=== PATIENT | male | born 1990 | race Caucasian/White ===

== ENCOUNTER 2021-04-27 14:25 | Emergency (ER) | payer BC ==
[~2021-04-27] VITALS: Ht 177 cm; Wt 64.0 kg
--- NOTE | 2021-04-27 14:54 | ED General ---
General Chief Complaint: Respiratory Problems Stated Complaint: INTERMITTENT DIZZINESS/SOB/CP History of Present Illness Date Seen by Provider: Apr 27, 2021 Time Seen by Provider: 14:35 Initial Comments 30-year-old male presents for a 1 to 2-month history of intermittent chest wall pain. He has occasional dizziness and shortness of air with symptoms. He reports various times they occur, sometimes when driving. He does report some stress and anxiety, but no depression. Denies sleep issues, no n/v/d. No family history of cardiac problems. He is not vaccinated, had a COVID test on 04/25/21 and was negative. He is tryin g to get established with a PCP at [facility]. They referred him here. Timing/Duration: Intermittent, Other (1 month) Associated Systoms: Chest Pain; No Cough, No Fever/Chills, No Headaches, No Loss of Appetite, No Nausea/Vomiting; Shortness of Air (not presently) Allergies and Home Medications Allergies Coded Allergies: No Known Drug Allergies (Unverified , 04/27/21) Patient Home Medication List Home Medication List Reviewed: Yes Review of Systems Review of Systems Constitutional: no symptoms reported, see HPI Respiratory: see HPI, short of breath Cardiovascular: see HPI, chest pain Gastrointestinal: no symptoms reported, see HPI All Other Systems Reviewed Negative Unless Noted: Yes Past Qtbitza-Wexdqw-Rbnyic Hx Patient Social History Tobacco Use?: Yes Tobacco type used: Cigarettes Use of E-Cig and/or Vaping dev: No Substance use?: Yes Substance type: Marijuana Substance frequency: Once in a while Family Medical History Reviewed Nursing Family Hx Physical Exam Vital Signs Vital Signs - First Documented 04/27/21 14:38 Temp 36.0 Pulse 75 Resp 18 B/P (MAP) 151/80 (103) Pulse Ox 98 O2 Delivery Room Air Capillary Refill : Height, Weight, BMI Height: '" Weight: lbs. oz. kg; BMI Method: General Appearance: No Apparent Distress, WD/WN HEENT: PERRL/EOMI, TMs Normal, Normal ENT Inspection, Pharynx Normal Neck: Full Range of Motion, Normal Inspection, Non Tender, Supple Respiratory: Chest Non Tender, Lungs Clear, Normal Breath Sounds Cardiovascular: Regular Rate, Rhythm, No Edema Gastrointestinal: Normal Bowel Sounds, No Pulsatile Mass, Non Tender, Soft Back: Normal Inspection, No CVA Tenderness, No Vertebral Tenderness Extremity: Normal Capillary Refill, Normal Inspection, Normal Range of Motion, Non Tender, No Calf Tenderness Neurologic/Psychiatric: Alert, Oriented x3, No Motor/Sensory Deficits, Normal Mood/Affect Skin: Normal Color, Warm/Dry Progress/Results/Core Measures Suspected Sepsis SIRS Temperature: Pulse: Respiratory Rate: Laboratory Tests 04/27/21 14:48: White Blood Count 5.6 Blood Pressure / Mean: Laboratory Tests 04/27/21 14:48: Creatinine 0.97, INR Comment 0.9, Platelet Count 279, Total Bilirubin 0.4 Results/Orders Lab Results Laboratory Tests Test 04/27/21 14:48 Range/Units White Blood Count 5.6 4.3-11.0 10^3/uL Red Blood Count 5.73 H 4.30-5.52 10^6/uL Hemoglobin 16.4 13.3-17.7 g/dL Hematocrit 48 40-54 % Mean Corpuscular Volume 85 80-99 fL Mean Corpuscular Hemoglobin 29 25-34 pg Mean Corpuscular Hemoglobin Concent 34 32-36 g/dL Red Cell Distribution Width 12.0 10.0-14.5 % Platelet Count 279 130-400 10^3/uL Mean Platelet Volume 9.6 9.0-12.2 fL Immature Granulocyte % (Auto) 0 % Neutrophils (%) (Auto) 57 42-75 % Lymphocytes (%) (Auto) 27 12-44 % Monocytes (%) (Auto) 11 0-12 % Eosinophils (%) (Auto) 3 0-10 % Basophils (%) (Auto) 1 0-10 % Neutrophils # (Auto) 3.2 1.8-7.8 10^3/uL Lymphocytes # (Auto) 1.5 1.0-4.0 10^3/uL Monocytes # (Auto) 0.6 0.0-1.0 10^3/uL Eosinophils # (Auto) 0.2 0.0-0.3 10^3/uL Basophils # (Auto) 0.1 0.0-0.1 10^3/uL Immature Granulocyte # (Auto) 0.0 0.0-0.1 10^3/uL Prothrombin Time 12.9 12.2-14.7 SEC INR Comment 0.9 0.8-1.4 Activated Partial Thromboplast Time 27 24-35 SEC Sodium Level 139 135-145 MMOL/L Potassium Level 3.6 3.6-5.0 MMOL/L Chloride Level 104 98-107 MMOL/L Carbon Dioxide Level 23 21-32 MMOL/L Anion Gap 12 5-14 MMOL/L Blood Urea Nitrogen 10 7-18 MG/DL Creatinine 0.97 0.60-1.30 MG/DL Estimat Glomerular Filtration Rate 91 BUN/Creatinine Ratio 10 Glucose Level 100 70-105 MG/DL Calcium Level 9.0 8.5-10.1 MG/DL Corrected Calcium 8.6 8.5-10.1 MG/DL Magnesium Level 1.9 1.6-2.4 MG/DL Total Bilirubin 0.4 0.1-1.0 MG/DL Aspartate Amino Transf (AST/SGOT) 20 5-34 U/L Alanine Aminotransferase (ALT/SGPT) 24 0-55 U/L Alkaline Phosphatase 57 40-136 U/L Myoglobin 35.7 10.0-92.0 NG/ML Troponin I < 0.028 <0.028 NG/ML Total Protein 7.3 6.4-8.2 GM/DL Albumin 4.5 3.2-4.5 GM/DL My Orders Orders - ALDO ALY Covid-19 External Lab Results (04/27/21 15:07) Cbc With Automated Diff (04/27/21 15:07) Magnesium (04/27/21 15:07) Chest 1 View, Ap/Pa Only (04/27/21 15:07) Ekg Tracing (04/27/21 15:07) Comprehensive Metabolic Panel (04/27/21 15:07) Myoglobin Serum (04/27/21 15:07) Protime With Inr (04/27/21 15:07) Partial Thromboplastin Time (04/27/21 15:07) Monitor-Rhythm Ecg Trace Only (04/27/21 15:07) Ed Iv/Invasive Line Start (04/27/21 15:07) Troponin I (04/27/21 15:07) Aspirin Chewable Tablet (Baby Aspirin Ch (04/27/21 15:15) Medications Given in ED Current Medications Medications Dose Ordered Sig/Mayda Route Start Time Stop Time Status Last Admin Dose Admin Aspirin 324 mg ONCE ONCE PO 04/27/21 15:15 04/27/21 15:16 DC 04/27/21 15:15 324 MG Vital Signs/I&O 04/27/21 04/27/21 14:38 16:32 Temp 36.0 36.1 Pulse 75 79 Resp 18 18 B/P (MAP) 151/80 (103) 122/79 Pulse Ox 98 98 O2 Delivery Room Air Room Air Capillary Refill : Progress Note : Time: 14:35 Progress Note Patient seen and evaluated, will obtain EKG, chest x-ray and labs. Aspirin 324 mg orally. 1530 discussed with patient labs and EKG do not indicate this is from a cardiac source, discussed at length with the patient about his recent stressors and the possibility that it is anxiety related. 1605 discharge instructions and return precautions reviewed. ECG Initial ECG Impression Date: Apr 27, 2021 Initial ECG Impression Time: 14:44 Initial ECG Rate: 64 Initial ECG Rhythm: Normal Sinus Initial ECG Intervals: Normal Initial ECG Intervals ME 146, QRSD 102, QT 369, QTc 381. [place] P 56, QRS 82, T 44 Initial ECG Impression: Normal Initial ECG Comparisson: No Previous ECG Available Diagnostic Imaging Diagonstic Imaging: Xray Plain Films/CT/US/NM/MRI: chest Comments NAME: [facility] REC#: [id number] PT STATUS: REG ER : 1990 PHYSICIAN: ALDO ALY ADMIT DATE: 04/27/21/ER Signed Date of Exam:04/27/21 CHEST 1 VIEW, AP/PA ONLY INDICATION: Shortness of breath. Light lightheadedness. Left-sided chest pain, intermittent. FINDINGS: The lungs are clear. Lung volumes are symmetric. No effusion or pneumothorax. There is no failure pattern. No free air beneath the diaphragms. The lungs are somewhat hyperexpanded symmetrically. This may be air trapping or aggressive inspiration. IMPRESSION: Clear mildly hyperexpanded lungs, otherwise negative. Dictated by: Dictated on workstation # [id number] Dict: 04/27/21 1519 Trans: 04/27/[address] [facility] [id number] Interpreted by: LE RUTLEDGE Departure Impression Primary Impression: Chest wall pain Disposition: 01 HOME, SELF-CARE Condition: Improved Departure-Patient Inst. Decision time for Depature: 16:05 Referrals: [facility],LOCAL PHYSICIAN (PCP) Primary Care Physician Patient Instructions: Chest Pain That Is Not Caused by the Heart (DC) Add. Discharge Instructions: Establish care with a primary care provider at [facility]. Consider seeing mental health regarding anxiety. Return to the emergency department for new, urgent healthcare needs. All discharge instructions reviewed with patient and/or family. Voiced understanding. Copy Copies To 1: JLUIS SANCHES AMY ARNP Apr 27, 2021 14:53
[2021-04-27 15:14] LABS: BASOPHILS # (AUTO) 0.1 10^3/uL (0.0-0.1); BASOPHILS % (AUTO) 1 % (0-10); EOSINOPHILS # (AUTO) 0.2 10^3/uL (0.0-0.3); EOSINOPHILS % (AUTO) 3 % (0-10); HEMATOCRIT 48 % (40-54); HEMOGLOBIN 16.4 g/dL (13.3-17.7); LYMPHOCYTES # (AUTO) 1.5 10^3/uL (1.0-4.0); LYMPHOCYTES % (AUTO) 27 % (12-44); MEAN CORPUSCULAR HEMOGLOBIN 29 pg (25-34); MEAN CORPUSCULAR HGB CONC 34 g/dL (32-36); MEAN CORPUSCULAR VOLUME 85 fL (80-99); MEAN PLATELET VOLUME 9.6 fL (9.0-12.2); MONOCYTES # (AUTO) 0.6 10^3/uL (0.0-1.0); MONOCYTES % (AUTO) 11 % (0-12); NEUTROPHILS # (AUTO) 3.2 10^3/uL (1.8-7.8); NEUTROPHILS % (AUTO) 57 % (42-75); PLATELET COUNT 279 10^3/uL (130-400); WHITE BLOOD COUNT 5.6 10^3/uL (4.3-11.0)
[2021-04-27] MEDS ORDERED: ASPIRIN 81 MG CHEW (CHILDREN'S ASA) PO ONE (15:15)
[2021-04-27 15:20] LABS: ALBUMIN 4.5 GM/DL (3.2-4.5); INR 0.9 (0.8-1.4); PROTHROMBIN TIME PATIENT 12.9 SEC (12.2-14.7)
[2021-04-27 15:21] LABS: POTASSIUM 3.6 MMOL/L (3.6-5.0)
--- NOTE | 2021-04-27 15:22 | Diagnostic Imaging Report ---
INDICATION: Shortness of breath. Light lightheadedness. Left-sided chest pain, intermittent. FINDINGS: The lungs are clear. Lung volumes are symmetric. No effusion or pneumothorax. There is no failure pattern. No free air beneath the diaphragms. The lungs are somewhat hyperexpanded symmetrically. This may be air trapping or aggressive inspiration. IMPRESSION: Clear mildly hyperexpanded lungs, otherwise negative. Dictated by: Dictated on workstation # [id number]
[2021-04-27 15:23] LABS: TOTAL PROTEIN 7.3 GM/DL (6.4-8.2)
[2021-04-27 15:25] LABS: BILIRUBIN,TOTAL 0.4 MG/DL (0.1-1.0)
[2021-04-27 15:27] LABS: CREATININE SERUM 0.97 MG/DL (0.60-1.30)
[2021-04-27 15:29] LABS: MAGNESIUM 1.9 MG/DL (1.6-2.4)
[2021-04-27 16:32] VITALS: BP 122/79
== END 2021-04-27 16:27 | disposition home or self-care (01) ==
LOC: ER 14:28
DX: R07.89 Other chest pain (principal); Z72.0 Tobacco use
CPT/HCPCS: 36415; 71045; 80053; 83735; 83874; 84484; 85025; 85610; 85730; 93005; 93041